=== PATIENT | male | born 1980 | race Caucasian/White ===

== ENCOUNTER → 2017-08-18 | Outpatient (CLI) | payer OTHER ==
[~2017-08-18] MED LIST: EPIPEN 2-PAK1 MG/ML IJ; KEFLEX500 MG PO; PREDNISONE10 MG PO; QUINAPRIL5 MG PO
== END | disposition home or self-care (01) ==
LOC: RAD 13:58
DX: M48.07 Spinal stenosis, lumbosacral region (principal)

== ENCOUNTER → 2019-05-27 | Outpatient (CLI) | payer OTHER | END | disposition home or self-care (01) | LOC: RAD 16:09 | DX: M54.5 Low back pain (principal) ==

== ENCOUNTER → 2022-02-14 | Outpatient (CLI) | payer OTHER | END | disposition home or self-care (01) | LOC: RAD 13:48 | PROVIDERS: ATTEND Family Medicine | DX: M25.562 Pain in left knee (principal) ==

== ENCOUNTER → 2023-02-03 | Outpatient (CLI) | payer OTHER | END | disposition home or self-care (01) | LOC: RAD 13:17 | PROVIDERS: ATTEND Family Medicine | DX: M25.562 Pain in left knee (principal) ==

== ENCOUNTER 2023-06-04 18:05 | Emergency (ER) | payer OTHER ==
[~2023-06-04] VITALS: Ht 187.9 cm; Wt 102.1 kg
[2023-06-04] MEDS ORDERED: VIBRAMYCIN100 MG PO (19:38)
== END 2023-06-04 19:46 | disposition home or self-care (01) ==
LOC: ED 18:05
DX: S51.811A Laceration without foreign body of right forearm, initial encounter (principal); I10 Essential (primary) hypertension; Z88.8 Allergy status to other drugs, medicaments and biological substances; Z98.890 Other specified postprocedural states; W45.8XXA Other foreign body or object entering through skin, initial encounter; Y93.39 Activity, other involving climbing, rappelling and jumping off; Y92.89 Other specified places as the place of occurrence of the external cause; Y99.8 Other external cause status